=== PATIENT | male | born 1960 | race Caucasian/White ===

== ENCOUNTER → 2017-05-01 | Outpatient (CLI) | payer OTHER ==
[2017-05-01 12:45] LABS: HEMOGLOBIN 13.6 gm/dl (14.0-17.5); RED BLOOD COUNT 4.34 M/UL (4.20-5.50); WHITE BLOOD COUNT 10.3 K/UL (4.5-11.0)
[2017-05-01 13:11] LABS: BUN/CREATININE RATIO 24 (0-10)
== END ==
LOC: LAB 11:52
PROVIDERS: Internal Medicine Hematology & Oncology
DX: C08.9 Malignant neoplasm of major salivary gland, unspecified (principal); C79.51 Secondary malignant neoplasm of bone; C79.52 Secondary malignant neoplasm of bone marrow; D47.2 Monoclonal gammopathy
CPT/HCPCS: 36415; 80053; 85025

== ENCOUNTER → 2017-05-02 | Outpatient (CLI) | payer OTHER | LOC: CT 10:18 | DX: C08.9 Malignant neoplasm of major salivary gland, unspecified (principal); D47.2 Monoclonal gammopathy; M89.9 Disorder of bone, unspecified | CPT/HCPCS: J7050; Q9962 ==